=== PATIENT | female | born 1945 | race Caucasian/White ===

== ENCOUNTER 2016-09-22 16:51 | Emergency (ER) | payer OTHER ==
[2016-09-22 17:01] VITALS: PULSE 0
--- NOTE | 2016-09-22 22:36 | EMERGENCY ROOM VISIT NOTE ---
History Report prepared by Scribe: Tuan Mario Under the Supervision of: Dr. Joel Krishna D.O. First contact with patient: 16:59 Stated Complaint: CARDIAC ARREST History of Present Illness The patient is a 61 year old female who presents to the Emergency Room via EMS with complaints of cardiac arrest. She was reported to be at baseline earlier in the day. As per , the patient was a t a basketball game when she told her that she needed to go to the car and rest for a while. She was found about 50 minutes ago. She was found in the [facility] bathroom vomiting and having difficulty breathing. Upon arrival, EMS found her pulse to be very weak. ACLS procedures were attempted to resuscitate the patient. A total of 5 IO epinephrine was administered. Resuscitation time total of about 50 minutes. She has a history of diabetes, CHF, and stroke. HPI is limited secondary to cardiac arrest. Additional history is obtained as per EMS and . Source of History: EMS History Limited By: cardiac arrest Onset: about 50 minutes ago Position: other (global) Quality: other (cardiac arrest) Review of Systems ROS is limited secondary to cardiac arrest. Past Medical & Surgical Medical Problems: (1) CHF (congestive heart failure) (2) Diabetes (3) Stroke Family History Patient reports no known family medical history. Social History Marital Status: Housing Status: lives with family Physical Exam Vital Signs Date Time Temp Pulse Resp B/P Pulse Ox O2 Delivery O2 Flow Rate FiO2 09/22/16 17:01 0 Physical Exam CONSTITUTIONAL/VITAL SIGNS: Reviewed / noted above. GENERAL: Non-toxic in appearance. Anthony airway in place. Izaiah device performing CPR. She had vomitus noted in her airway. INTEGUMENTARY: Warm, dry, and [place]. HEAD: Normocephalic. EYES: without scleral icterus or trauma. ENT/OROPHARYNX: clear and moist. LYMPHADENOPATHY/NECK: Is supple without lymphadenopathy or meningismus. RESPIRATORY: Breath sounds were diminished. CARDIOVASCULAR: Regular rate and rhythm. GI/ABDOMEN: Soft and nontender. No organomegaly or pulsatile mass. No rebound or guarding. Normal bowel sounds. EXTREMITIES: Warm and well perfused. Left leg revealed interosseous line. BACK: No CVA tenderness. NEUROLOGICAL: Intact without focal deficits. PSYCHIATRIC: normal affect. MUSCULOSKELETAL: Normally developed with good muscle tone. Medical Decision & Procedures ED Course 1653: Previous medical records were reviewed. The patient was evaluated in room B01. A complete history and physical examination was performed. Patient arrived with CPR in progress. Upon ceasing CPR, the patient had no pulses. Her monitor showed asystole. Patient was pronounced shortly after arrival. 1702: I discussed the patient's case with her . Medical Decision Differential includes acute coronary syndrome, myocardial infarction, CVA, TIA, anemia, infection, pneumonia, UTI, pyelonephritis, poor nutrition, dehydration, electrolyte disturbance,hypoglycemia. This is a 71-year-old female who presents to the emergency department with a chief complaint of cardiac arrest. The [email or web address] and was not feeling well. She told her that she was going to rest in the car. It while later, she was found unresponsive in her room. EMS arrived on scene. They initiated ACLS protocols. CPR was in progress as well as epinephrine has been given 5. Airway was secured. The patient's time of onset of resuscitation efforts was approximately 50 minutes prior to her arrival here. The patient was asystolic on her arrival here. There is no sign of life. The patient was pronounced . I spoke with the about the patient. Impression Primary Impression: Cardiac arrest Scribe Attestation The scribe's documentation has been prepared under my direction and personally reviewed by me in its entirety. I confirm that the note above accurately reflects all work, treatment, procedures, and medical decision making performed by me. Departure Information Dispostion Referrals No Doctor, Assigned (PCP)
== END 2016-09-22 19:35 | disposition expired ==
LOC: C.EDB 16:53 → C.EDA 19:35
DX: I46.9 Cardiac arrest, cause unspecified (principal); I50.9 Heart failure, unspecified; E11.9 Type 2 diabetes mellitus without complications; Z86.73 Personal history of transient ischemic attack (TIA), and cerebral infarction without residual deficits